=== PATIENT | male | born 1975 | race Native Hawaiian/Other Pacific Islander ===

== ENCOUNTER 2023-12-05 10:30 | Emergency (ER) | payer MEDICAID ==
[2023-12-05 11:12] VITALS: BP 131/85; O2SAT 99
--- NOTE | 2023-12-05 12:34 | ED Physician Documentation ---
PD HPI HEENT - Stated complaint Stated Complaint: RT SIDE TOOTH PX - Chief complaint Chief Complaint: Heent - History obtained from History obtained from: Patient - Additional information Additional information: 48-year-old male who recently moved here from [facility] presents with right upper premolar pain. He states he ate some meat the other day and since then the tooth has been bothering him, it has happened in the past and he believes that this tooth is about to fall out. He states he has had a number of teeth follow- up in the past. He is requesting antibiotics until he can get into see a rafael suresh. He does not have dental care here yet. He has not had any facial swelling or erythema, no fever or chills, does note some mild swelling around the gumline.He has not attempted any medication for this. Review of Systems Constitutional: reports: Reviewed and negative Eyes: reports: Reviewed and negative Ears: reports: Reviewed and negative Nose: reports: Reviewed and negative Throat: reports: Dental pain / toothache Cardiac: reports: Reviewed and negative Respiratory: reports: Reviewed and negative GI: reports: Reviewed and negative : reports: Reviewed and negative Skin: reports: Reviewed and negative Musculoskeletal: reports: Reviewed and negative Neurologic: reports: Reviewed and negative Psychiatric: reports: Reviewed and negative Endocrine: reports: Reviewed and negative PD PAST MEDICAL HISTORY - Past Medical History Past Medical History: Yes Neuro: Peripheral neuropathy Endocrine/Autoimmune: Type 2 diabetes GI: Diverticulitis - Past Surgical History Past Surgical History: No - Present Medications Home Medications: Ambulatory Orders Medication Instructions Recorded Confirmed Amoxicillin 500 mg PO TID #21 cap 12/05/23 - Allergies Allergies/Adverse Reactions: Allergies Allergy/AdvReac Type Severity Reaction Status Date / Time No Known Drug Allergies Allergy Verified 12/05/23 11:00 - Social History Does the pt smoke?: Yes Smoking Status: Current every day smoker Does the pt drink ETOH?: No Does the pt have substance abuse?: No PD ED PE NORMAL - Vitals Vital signs reviewed: Yes - General General: Alert and oriented X 3, No acute distress, Well developed/nourished - HEENT HEENT: Atraumatic, Moist mucous membranes, Other (Poor dentition with multiple missing teeth. See right upper premolar is loose, there is mild to swelling around the gumline and the tooth is somewhat tender to touch.) - Neck Neck: Supple, no meningeal sign, No adenopathy - Cardiac Cardiac: RRR, No murmur, Strong equal pulses - Respiratory Respiratory: No respiratory distress, Clear bilaterally Results - Vitals Vitals: Vital Signs - 24 hr 12/05/23 10:56 Temperature 36.9 C Heart Rate 83 Respiratory 16 Rate Blood Pressure 131/85 H O2 Saturation 99 Oxygen O2 Source Room air PD Medical Decision Making - ED course Complexity details: d/w patient, d/w family ED course: 48-year-old male presents with right upper tooth pain as described in HPI. He has a loose and mildly tender premolar in the right upper jaw. There is some localized swelling, no focal abscess, no facial swelling or erythema. He has no systemic symptoms. I discussed with patient that I suspect this to use his going to fill out and patient states he is lost a number of taste in the past and is planning on getting dentures in the future. Referral placed the patient on amoxicillin for the next 7 days until he is able to see a dentist, use advised to avoid chewing on that side, take ibuprofen or Tylenol as needed, and follow-up with dentist to see if the tooth is salvageable if desired though patient plans to get an extraction if it does not fall out on its own. Discussed return precautions if any worsening symptoms including fever, facial pain or swelling or new concerns. Departure - Departure Disposition: 01 Home, Self Care Clinical Impression: Pain due to dental caries Condition: Good Instructions: ED Tooth Pain Prescriptions: Amoxicillin 500 mg PO TID #21 cap Comments: Thank you for visiting [facility]. The tooth that is bothering you appears as though it would likely fall out. If it does not come out on its own, please see a dentist to have an extraction. In the meantime, I have prescribed amoxicillin for you to take for the next 7 days. You can take ibuprofen and Tylenol as well for the pain. Try to chew on the other side and avoid any hot or sugary foods or cold foods that may bother the tooth more. If the infection appears to be getting worse, please return to the ER. Forms: PCP List
== END 2023-12-05 12:36 | disposition home or self-care (01) ==
LOC: ED 10:30
DX: K02.9 Dental caries, unspecified (principal); E11.9 Type 2 diabetes mellitus without complications; F17.200 Nicotine dependence, unspecified, uncomplicated
CPT/HCPCS: 99282; 99283

== ENCOUNTER 2023-12-17 11:30 | Outpatient (CLI) | payer MEDICAID ==
[2023-12-17 17:44] LABS: BASOPHILS % (AUTO) 0.3 %; EOSINOPHILS # (AUTO) 0.2 10^3/uL (0.0-0.7); EOSINOPHILS % (AUTO) 2.9 %; HCT - HEMATOCRIT 48.5 % (42.0-52.0); HGB - HEMOGLOBIN 16.3 g/dL (14.0-18.0); LYMPHOCYTES # (AUTO) 1.9 10^3/uL (1.5-3.5); LYMPHOCYTES % (AUTO) 25.8 %; MEAN CORPUSCULAR HEMOGLOBIN 29.4 pg (27.0-31.0); MEAN CORPUSCULAR HGB CONC 33.6 g/dL (32.0-36.0); MEAN CORPUSCULAR VOLUME 87.5 fL (80.0-94.0); MEAN PLATELET VOLUME 9.8 fL (7.4-11.4); MONOCYTES # (AUTO) 0.3 10^3/uL (0.0-1.0); MONOCYTES % (AUTO) 4.3 %; NEUTROPHILS # (AUTO) 4.9 10^3/uL (1.5-6.6); NEUTROPHILS % (AUTO) 66.4 %; PLT - PLATELET COUNT 323 10^3/uL (130-450); RED BLOOD COUNT 5.54 10^6/uL (4.70-6.10); RED CELL DISTRIBUTION WIDTH 12.3 % (12.0-15.0); WHITE BLOOD COUNT 7.3 x10^3/uL (4.8-10.8)
[2023-12-17 18:05] LABS: CHOL/HDL RATIO 4.7 (<5.0); CHOLESTEROL 197 mg/dL; HDL CHOLESTEROL 42 mg/dL; TRIGLYCERIDES 512 mg/dL (48-352)
[2023-12-17 18:18] LABS: THYROID STIMULATING HORMONE 1.58 uIU/mL (0.34-5.60)
[2023-12-17 18:28] LABS: GLUCOSE 545 mg/dL (74-104)
[2023-12-17 18:29] LABS: ALBUMIN 4.1 g/dL (3.2-5.5); ALBUMIN/GLOBULIN RATIO 1.2 (1.0-2.2); ALKALINE PHOSPHATASE 123 IU/L (42-121); ALT ALANINE AMINOTRANSFERASE 28 IU/L (10-60); AST ASPARTATE AMINOTRANSFERASE 23 IU/L (10-42); BILIRUBIN,TOTAL 0.5 mg/dL (0.2-1.0); BUN - BLOOD UREA NITROGEN 14 mg/dL (6-20); CALCIUM 9.5 mg/dL (8.5-10.3); CARBON DIOXIDE - CO2 27 mmol/L (21-32); CHLORIDE 93 mmol/L (101-111); CREATININE 1.3 mg/dL (0.6-1.3); GFR - MDRD 58 (>89); POTASSIUM 4.5 mmol/L (3.5-4.5); SODIUM 128 mmol/L (135-145); TOTAL PROTEIN 7.5 g/dL (6.4-8.9)
[2023-12-17 18:40] LABS: LDL CHOLESTEROL,DIRECT 103 mg/dL (75-193); LDLD/HDL RATIO 2.5 (<3.6)
[2023-12-17 21:42] LABS: ESTIMATED AVERAGE GLUCOSE 438 mg/dL (70-100); HEMOGLOBIN A1c% 16.9 % (4.27-6.07)
== END 2023-12-17 11:45 | disposition home or self-care (01) ==
LOC: LAB.N 11:30
PROVIDERS: ATTEND Physician Assistant Medical
DX: E11.69 Type 2 diabetes mellitus with other specified complication (principal)
CPT/HCPCS: 36415; 80053; 80061; 83036; 83721; 84443; 85025

== ENCOUNTER 2023-12-17 11:45 | Outpatient (CLI) | payer MEDICAID ==
--- NOTE | 2023-12-17 13:50 | XRAY Report ---
PROCEDURE: Lumbar Spine 2-3V INDICATIONS: TYPE 2 DIABETES MELLITUS WITH OTHER COMPLICATION TECHNIQUE: 2 views of the lumbar spine were acquired. COMPARISON: None. FINDINGS: Bones: 5 [id number] vertebrae are present. Mild dextrocurvature of the lumbar spine. Straighten ing of the normal lumbar lordosis. There are mild multilevel degenerative changes of the lumbar spine with facet arthropathy and disc height loss with degenerative endplate changes and marginal spurring . No vertebral body compression fractures. No suspicious bony lesions. Soft tissues: Overlying bowel gas pattern is normal. No suspicious soft tissue calcifications. IMPRESSION: Mild multilevel degenerative changes of the lumbar spine. Reviewed by: Dontae Wright MD on 12/17/2023 1:49 PM PDT Approved by: Dontae Wright MD on 12/17/2023 1:49 PM PDT Station ID: [id number]
== END 2023-12-17 12:00 | disposition home or self-care (01) ==
LOC: DI.N 11:45
PROVIDERS: ATTEND Physician Assistant Medical
DX: M47.816 Spondylosis without myelopathy or radiculopathy, lumbar region (principal)

== ENCOUNTER 2024-03-28 18:26 | Outpatient (CLI) | payer MEDICAID ==
[2024-03-28 18:46] LABS: BASOPHILS % (AUTO) 0.5 %; EOSINOPHILS # (AUTO) 0.3 10^3/uL (0.0-0.7); LYMPHOCYTES # (AUTO) 2.6 10^3/uL (1.5-3.5); LYMPHOCYTES % (AUTO) 31.3 %; MEAN CORPUSCULAR HEMOGLOBIN 28.8 pg (27.0-31.0); MEAN CORPUSCULAR HGB CONC 33.3 g/dL (32.0-36.0); MEAN CORPUSCULAR VOLUME 86.3 fL (80.0-94.0); MEAN PLATELET VOLUME 9.4 fL (7.4-11.4); MONOCYTES # (AUTO) 0.5 10^3/uL (0.0-1.0); MONOCYTES % (AUTO) 5.5 %; NEUTROPHILS # (AUTO) 4.8 10^3/uL (1.5-6.6); NEUTROPHILS % (AUTO) 58.3 %; PLT - PLATELET COUNT 284 10^3/uL (130-450); RED BLOOD COUNT 5.91 10^6/uL (4.70-6.10); RED CELL DISTRIBUTION WIDTH 12.7 % (12.0-15.0); WHITE BLOOD COUNT 8.2 x10^3/uL (4.8-10.8)
[2024-03-28 18:57] LABS: ALBUMIN 4.3 g/dL (3.2-5.5); ALBUMIN/GLOBULIN RATIO 1.2 (1.0-2.2); BILIRUBIN,TOTAL 0.7 mg/dL (0.2-1.0); CALCIUM 9.7 mg/dL (8.5-10.3); CREATININE 1.2 mg/dL (0.6-1.3)
[2024-03-28 20:36] LABS: ESTIMATED AVERAGE GLUCOSE 255 mg/dL (70-100); HEMOGLOBIN A1c% 10.5 % (4.27-6.07)
== END 2024-03-28 18:27 | disposition home or self-care (01) ==
LOC: LAB 18:26
DX: E11.69 Type 2 diabetes mellitus with other specified complication (principal)
CPT/HCPCS: 36415; 80053; 83036; 85025

== ENCOUNTER 2024-05-06 10:48 | Emergency (ER) | payer MEDICAID ==
--- NOTE | 2024-05-06 11:16 | ED Physician Documentation ---
History of Present Illness - Stated complaint Stated Complaint: RT SHOULDER PX - Chief complaint Chief Complaint: Ext Problem - History obtained from History obtained from: Patient - Additonal information Additional information: 48-year-old male presents with right shoulder pain for the last couple weeks. He denies any acute injury and states he was having pain in the left shoulder and was going to physical therapy and not improved but now is having more right shoulder pain. He has difficulty sleeping at night due to the pain. He denies any acute injuries, no repetitive motion activity, not currently working but is taking care of the house, and does a lot of reaching into cabinets, taking care of the children doing cleaning around the house which seem to exacerbate the shoulder pain. He has not noted any shoulder redness or swelling. He sometimes has some spasming and twitching of his right hand due to the pain. He states he has diabetes and was wondering if this was neuropathy. He has tried diclofenac ointment without relief, no other medications. He is going to a chiropractor without relief. PD PAST MEDICAL HISTORY - Past Medical History Past Medical History: Yes Neuro: Peripheral neuropathy Endocrine/Autoimmune: Type 2 diabetes GI: Diverticulitis : Renal insuffiency - Past Surgical History Past Surgical History: No - Present Medications Home Medications: Ambulatory Orders Medication Instructions Recorded Confirmed Empagliflozin [Jardiance] 10 mg PO DAILY 01/28/24 01/28/24 Metformin HCl [Metformin ER 500 - 1,000 mg PO BIDWM 01/28/24 01/28/24 Osmotic] Acetaminophen [Tylenol] 500 mg PO Q4-6H PRN #30 tablet 05/06/24 Cyclobenzaprine [Flexeril] 10 mg PO QPM PRN #20 tablet 05/06/24 Naproxen 250 mg PO BID PRN #30 tablet 05/06/24 - Allergies Allergies/Adverse Reactions: Allergies Allergy/AdvReac Type Severity Reaction Status Date / Time No Known Drug Allergies Allergy Verified 05/06/24 10:59 - Social History Does the pt smoke?: Yes Smoking Status: Current every day smoker Does the pt drink ETOH?: No Does the pt have substance abuse?: No PD ED PE NORMAL - Vitals Vital signs reviewed: Yes - General General: Alert and oriented X 3, No acute distress, Well developed/nourished - HEENT HEENT: Atraumatic, Moist mucous membranes - Cardiac Cardiac: RRR, No murmur - Respiratory Respiratory: No respiratory distress, Clear bilaterally - Back Back: No CVA TTP, No spinal TTP - Derm Derm: Normal color, Warm and dry - Extremities Extremities: No deformity, Other (Mildly decreased overhead reach, 5 out of 5 shoulder strength, slightly decreased external rotation and internal rotation. There is no focal pain with palpation of the shoulder itself, he does have some tenderness with palpation of the scapula.) Results - Vitals Vitals: Vital Signs - 24 hr 05/06/24 11:00 Temperature 36.3 C L Heart Rate 78 Respiratory 15 Rate Blood Pressure 138/95 H O2 Saturation 99 Oxygen O2 Source Room air - Rads (name of study) No standard instances Relevant Findings:: Final report received PD Medical Decision Making - ED course Complexity details: reviewed results, considered differential, d/w patient ED course: Very nice 48-year-old gentleman who presented with right shoulder pain as described in HPI. He had no acute injury, but has had progressive right sam ulder pain over the last couple of weeks. Has had similar symptoms in the past on the left shoulder. On exam, he has slightly decreased range of motion including overhead reach and internal rotation, no obvious deformity, no swelling or erythema. X-ray reveals a mild arthritis, no other acute findings. I discussed with patient that he may have a tendinopathy or arthritic changes and typically shoulder injuries will take some time to improve and require diligent rehab exercising. Recommended he start with Tylenol for pain control, and you can take naproxen or ibuprofen periodically as well. Recommended exercises until discussed with physical therapy. If no improvement patient to follow-up with his primary doctor and consider outpatient referral to nonemergent orthopedics. Departure - Departure Disposition: Home, Self Care Clinical Impression: Shoulder pain, right Qualifiers: Chronicity: acute Qualified Code(s): M25.511 - Pain in right shoulder Condition: Good Instructions: Exercise Shoulder Pendulum, Exercise Shoulder Wall Pushup, Exercise Shoulder Group Counselor Rotation, Impingement Syndrome Prescriptions: Cyclobenzaprine [Flexeril] 10 mg PO QPM PRN #20 tablet PRN Reason: Spasms Naproxen 250 mg PO BID PRN #30 tablet PRN Reason: Pain 1-4 Acetaminophen [Tylenol] 500 mg PO Q4-6H PRN #30 tablet PRN Reason: Pain 1-4 Comments: As we discussed, I think you have some arthritis, as well as possible ligament injury in the right shoulder. This will take time to heal and I would like you to continue to do rehab exercises. It is also okay to take naproxen and Tylenol for this pain. I have prescribed a muscle relaxer which may also help you sleep at nighttime. Continue following with your regular doctor and if this does not improve they may have you see a employee placement specialist. Forms: PCP List Discharge Date/Time: 05/06/24 12:12
[2024-05-06 11:19] VITALS: BP 138/95; O2SAT 99
--- NOTE | 2024-05-06 11:32 | XRAY Report ---
PROCEDURE: Shoulder 2+V RT INDICATIONS: injury TECHNIQUE: 3 views of the shoulder were acquired. COMPARISON: None. FINDINGS: Bones: No fractures or dislocations. Moderate acromioclavicular joint osteoarthritis. No suspicious bony lesions. Visualized ribs appear intact. Soft tissues: No suspicious soft tissue calcifications. The visualized lungs are within normal limi ts. IMPRESSION: No acute bony abnormality. Moderate acromioclavicular joint osteoarthritis. No gross soft tissue abno rmalities. Reviewed by: Jaquan Hurt MD on 05/06/2024 11:31 AM PDT Approved by: Jaquan Hurt MD on 05/06/2024 11:31 AM PDT Station ID: [id number]
== END 2024-05-06 12:12 | disposition home or self-care (01) ==
LOC: ED 10:48
DX: M25.511 Pain in right shoulder (principal); E11.42 Type 2 diabetes mellitus with diabetic polyneuropathy; F17.200 Nicotine dependence, unspecified, uncomplicated; Z79.84 Long term (current) use of oral hypoglycemic drugs
CPT/HCPCS: 99283